=== PATIENT | female | born 1985 | race Caucasian/White ===

== ENCOUNTER 2018-09-07 08:27 | Emergency (ER) | payer MEDICAID ==
[~2018-09-07] VITALS: Ht 152.4 cm; Wt 60.0 kg
[~2018-09-07 08:27] MED LIST: CALC-600 MT; FOLI-49 PO; IRON18TA MT; PREN1TAB49 MT; PREN1TAB62 PO
[2018-09-07 08:30] VITALS: BP 133/79; PULSE 90; RESP 16; Ht 152.4 cm; Wt 60.0 kg
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
[2018-09-07] MEDS ORDERED: IBUPROFEN 200 MG TAB ONE (09:08)
== END 2018-09-07 09:30 | disposition home or self-care (01) ==
LOC: E/R 08:27
DX: S00.83XA Contusion of other part of head, initial encounter (principal); V03.10XA Pedestrian on foot injured in collision with car, pick-up truck or van in traffic accident, initial encounter
CPT/HCPCS: Z7502; Z7610; 99282